=== PATIENT | female | born 1945 | race Caucasian/White ===

== ENCOUNTER → 2016-07-02 | Outpatient (CLI) | payer MEDICARE, BC | LOC: MW.CHIM 08:00 | PROVIDERS: ATTEND Internal Medicine | DX: Z51.81 Encounter for therapeutic drug level monitoring (principal); Z79.01 Long term (current) use of anticoagulants; I48.91 Unspecified atrial fibrillation | CPT/HCPCS: 85610; 99211 ==

== ENCOUNTER → 2016-07-09 | Outpatient (CLI) | payer MEDICARE, BC | LOC: MW.CHIM 08:00 | PROVIDERS: ATTEND Internal Medicine | DX: Z51.81 Encounter for therapeutic drug level monitoring (principal); Z79.01 Long term (current) use of anticoagulants; I48.91 Unspecified atrial fibrillation | CPT/HCPCS: 85610; 99211 ==

== ENCOUNTER → 2016-07-24 | Outpatient (CLI) | payer MEDICARE, BC ==
[2016-07-24 08:37] LABS: CHLORIDE,CL 104 mmol/L (98-110); SODIUM,NA 140 mmol/L (136-146)
== END ==
LOC: MW.CHIM 07:39
PROVIDERS: ATTEND Internal Medicine
DX: I10 Essential (primary) hypertension (principal); E78.5 Hyperlipidemia, unspecified; E11.9 Type 2 diabetes mellitus without complications; I48.91 Unspecified atrial fibrillation
CPT/HCPCS: 36415; 80053; 83036; 85025; 99215

== ENCOUNTER → 2016-07-25 | Outpatient (CLI) | payer MEDICARE, BC | LOC: MW.CHIM 08:00 | PROVIDERS: ATTEND Internal Medicine | DX: Z51.81 Encounter for therapeutic drug level monitoring (principal); Z79.01 Long term (current) use of anticoagulants; I48.91 Unspecified atrial fibrillation | CPT/HCPCS: 85610; 99211 ==

== ENCOUNTER → 2016-07-31 | Outpatient (CLI) | payer MEDICARE, BC | LOC: MW.CHIM 08:00 | PROVIDERS: ATTEND Internal Medicine | DX: Z01.30 Encounter for examination of blood pressure without abnormal findings (principal) ==

== ENCOUNTER 2022-02-02 09:18 | Inpatient (IN) | payer MEDICARE, BC ==
[2022-02-02 10:26] LABS: CORONAVIRUS COVID-19 NAA NEGATIVE (NEGATIVE); INFLUENZA A NAA NEGATIVE (NEGATIVE); INFLUENZA B NAA NEGATIVE (NEGATIVE)
[2022-02-02 11:37] LABS: CARBON DIOXIDE,CO2 29.7 mmol/L (21.0-32.0)
[2022-02-02] MEDS ORDERED: Aspirin 81 MG Tab.Chew PO ONE (11:46)
[2022-02-02] MEDS ORDERED: Furosemide 40 MG/4 ML VIAL IVPUSH STA (12:58)
[2022-02-02] MEDS ORDERED: Albuterol/Ipratropium 3.0-0.5 MG/3 ML Neb Soln NEB PRN (15:13)
[2022-02-02] MEDS ORDERED: Ondansetron 4 MG/2 ML SDV IVPUSH PRN (15:15)
[2022-02-02] MEDS ORDERED: Glucagon,Human Recombinant 1 MG Vial IM PRN (17:05)
[2022-02-02] MEDS ORDERED: 50% Dextrose in Water 50 ML Syringe IVPUSH PRN (17:05)
[2022-02-02] MEDS ORDERED: Acetaminophen 500 MG Tab PO PRN (18:39)
[2022-02-02] MEDS ORDERED: Labetalol 100 MG/20 ML MDV IVPUSH ONE (19:24)
[2022-02-02] MEDS ORDERED: Codeine/guaiFENesin 10-100 MG/5 ML Syrup 5 ML Cup PO PRN (20:12)
[2022-02-02] MEDS ORDERED: Melatonin 3 MG Tab PO ONE (21:00)
[2022-02-02] MEDS: Furosemide 40 MG/4 ML VIAL IVPUSH SCH (21:25)
[2022-02-03] MEDS: Metoprolol Tartrate 50 MG Tab PO SCH ×2 (00:33→08:35)
[2022-02-03] MEDS: cloNIDine 0.1 MG Tab PO SCH ×2 (00:33→08:36)
[2022-02-03 06:43] LABS: CARBON DIOXIDE,CO2 31.3 mmol/L (21.0-32.0); POTASSIUM,K 3.6 mmol/L (3.5-5.1)
[2022-02-03] MEDS ORDERED: Pantoprazole 40 MG in Sodium Chloride 0.9% 10 ML IVPUSH SCH (07:30)
[2022-02-03] MEDS ORDERED: Magnesium Sulfate/Water 2 GM in Premix Bag 1 BAG IV ONE (07:51)
[2022-02-03] MEDS: Insulin Aspart 100 Units/ML 3 ML Pen SUBCUT SCH ×2 (08:03→11:34)
[2022-02-03] MEDS: Furosemide 40 MG/4 ML VIAL IVPUSH SCH (08:38)
[2022-02-03] MEDS ORDERED: Sertraline 50 MG Tab PO SCH (09:00)
[2022-02-03] MEDS ORDERED: Diltiazem 120 MG Cap.CD PO SCH (09:00)
[2022-02-03] MEDS ORDERED: Digoxin 125 MCG Tab PO SCH (09:00)
[2022-02-03] MEDS ORDERED: Levofloxacin 750 MG Tab PO SCH (13:30)
[2022-02-03] MEDS ORDERED: Warfarin 2.5 MG Tab PO SCH (14:00)
[2022-02-03] MEDS ORDERED: Warfarin Sliding Scale SCH (14:00)
[2022-02-03] MEDS ORDERED: atorvaSTATin 40 MG Tab PO SCH (21:00)
== END 2022-02-03 16:35 | DRG 293 ==
LOC: MW.ED 09:18 → MW.MS 14:05
PROVIDERS: ADMIT Student in an Organized Health Care Education/Training Program; ATTEND Student in an Organized Health Care Education/Training Program
DX: I11.0 Hypertensive heart disease with heart failure (principal); I48.91 Unspecified atrial fibrillation; I25.10 Atherosclerotic heart disease of native coronary artery without angina pectoris; E78.00 Pure hypercholesterolemia, unspecified; E11.9 Type 2 diabetes mellitus without complications; H54.7 Unspecified visual loss; R77.8 Other specified abnormalities of plasma proteins; Z20.822 Contact with and (suspected) exposure to COVID-19; E78.5 Hyperlipidemia, unspecified; I50.9 Heart failure, unspecified; Z98.49 Cataract extraction status, unspecified eye; Z79.84 Long term (current) use of oral hypoglycemic drugs; Z79.01 Long term (current) use of anticoagulants; Z95.0 Presence of cardiac pacemaker; Z79.899 Other long term (current) drug therapy; Z87.891 Personal history of nicotine dependence
CPT/HCPCS: 0240U; 36415; 71045; 71045-26; 80053; 81001; 82947; 83735; 83880; 84100; 84484; 85025; 85610; 93005; 96374; 99222; 99239; 99291; A9270-GY; C9113; J1940; J3475; J3490

== ENCOUNTER 2023-02-12 01:34 | Emergency (ER) | payer MEDICARE, BC ==
[2023-02-12 02:19] LABS: BASOPHILS ABSOLUTE AUTO 0.09 K/uL (0.00-0.20); BASOPHILS PERCENT AUTO 0.8 % (0.0-1.0); EOSINOPHILS ABSOLUTE AUTO 0.58 K/uL (0.00-0.45); EOSINOPHILS PERCENT AUTO 5.3 % (0.0-6.0); HEMATOCRIT 31.9 % (37.0-47.0); HEMOGLOBIN 10.3 g/dL (12.0-16.0); IMMATURE GRAN ABSOLUTE AUTO 0.03 K/uL (0.00-0.05); IMMATURE GRAN PERCENT AUTO 0.3 % (0.0-0.4); LYMPHOCYTES PERCENT AUTO 13.7 % (24.0-44.0); MEAN CORPUSCULAR HEMOGLOBIN 28.7 pg (28.0-32.0); MEAN CORPUSCULAR HGB CONC 32.3 g/dL (32.0-36.0); MEAN CORPUSCULAR VOLUME 88.9 fL (83.0-99.0); MEAN PLATELET VOLUME 9.9 fL (9.4-12.3); MONOCYTES ABSOLUTE AUTO 1.03 K/uL (0.00-0.80); MONOCYTES PERCENT AUTO 9.4 % (0.0-8.0); NEUTROPHILS PERCENT AUTO 70.5 % (41.0-71.0); PLATELET COUNT,PLT 294 K/uL (150-400); RED BLOOD CELL COUNT 3.59 M/uL (4.10-5.30); WHITE BLOOD CELL COUNT,WBC 10.93 K/uL (3.9-11.3)
[2023-02-12 02:33] LABS: INR 3.63 (0.86-1.11)
[2023-02-12] MEDS ORDERED: Oxymetazoline 0.05% Nasal Spray 30 ML Bottle NAS ONE (02:43)
[2023-02-12] MEDS ORDERED: Tranexamic Acid 1,000 MG/10 ML Vial ONE (02:47)
[2023-02-12 03:05] LABS: ALANINE AMINOTRANSFERASE,ALT 20 IU/L (14-63); ALBUMIN 3.5 g/dL (3.4-5.0); ALKALINE PHOSPHATASE 98 U/L (46-116); ASPARTATE AMNIOTRANSFERASE,AST 15 IU/L (15-37); BILIRUBIN TOTAL 0.3 mg/dL (0.2-1.0); BLOOD UREA NITROGEN,BUN 20 mg/dL (7.0-18.0); CALCIUM 9.1 mg/dL (8.5-10.1); CHLORIDE,CL 101 mmol/L (98-107); CREATININE 1.2 mg/dL (0.6-1.0); GLUCOSE RANDOM 136 mg/dL (74-106); POTASSIUM,K 4.5 mmol/L (3.5-5.1); PROTEIN TOTAL,TP 6.9 g/dL (6.4-8.2); SODIUM,NA 138 mmol/L (136-145)
[2023-02-12 03:07] LABS: ESTIMATED GFR 47 mL/min (>60)
== END 2023-02-12 05:02 | disposition home or self-care (01) ==
LOC: MW.ED 01:34
DX: R04.0 Epistaxis (principal); I10 Essential (primary) hypertension; E78.00 Pure hypercholesterolemia, unspecified; I25.10 Atherosclerotic heart disease of native coronary artery without angina pectoris; I48.91 Unspecified atrial fibrillation; E11.9 Type 2 diabetes mellitus without complications; Z95.0 Presence of cardiac pacemaker; Z79.01 Long term (current) use of anticoagulants; Z79.899 Other long term (current) drug therapy
CPT/HCPCS: 30903; 36415; 80053; 85025; 85610; 99283; A9270; 30901; J3490